=== PATIENT | female | born 1945 | race Caucasian/White ===

== ENCOUNTER 2016-06-17 16:52 | Emergency (ER) | payer OTHER, MEDICARE, BC ==
[~2016-06-17 16:52] MED LIST: ALAVERT10 MG PO; AMOXIL500C PO; BENTYL10 PO; COSAMIN DS1 TAB PO; GLUCCHONDR PO; LEVOTHROID88 MCG PO; LEVOTHYROXIN88 MCG PO; LOP25 PO; MELATONIN5 M1 PO; MOTRIN IB200 MG PO; PRADAXA150 MG PO; PROTONIX PO; RYTHMOL150 MG PO; RYTHMOL225 MG PO; T PO; VITC500 PO; ZANTAC 75 PO
== END 2016-06-17 22:45 | disposition left against medical advice (07) ==
LOC: ER 16:52
DX: Z53.21 Procedure and treatment not carried out due to patient leaving prior to being seen by health care provider (principal)
CPT/HCPCS: 70450; 72125; 93005